=== PATIENT | female | born 1940 | race Caucasian/White ===

== ENCOUNTER 2016-05-22 01:35 | Day surgery (SDC) | payer MEDICARE ==
[~2016-05-22 01:35] MED LIST: ALEN40TA2 PO; ASPI-973 PO; ATRV10T PO; CALC-190 PO; CHOL200047 PO; ESTR0.45 PO; MULT-666 PO
[2016-05-22] MEDS ORDERED: Thyrotropin 0.9 mg/mL Inj IM ONE (10:00)
[2016-05-22] MEDS ORDERED: METR45CR TOP (10:03)
[2016-05-22] MEDS ORDERED: GLUC100016 PO (10:03)
[2016-05-22] MEDS ORDERED: CALC0.257 PO (10:03)
[2016-05-22] MEDS ORDERED: LEVO125T6 PO (10:03)
--- NOTE | 2016-05-22 11:30 | NUR ---
Injection/Discharge Pt. arrived about 1000. VSS. Denies pain. Med. Rec. done. Thyrogen Care note reviewed. Injection reviewed about 1050. Injection give in left buttock. Schedule for the rest of the test reviewed. Discharge instructions given, see sheets. Verbalizes understanding. Discharged ambulatory with all belongings in no distress at 1100.
== END 2016-05-22 23:59 | disposition home or self-care (01) ==
LOC: SOUO 01:35
PROVIDERS: ATTEND Specialist
DX: C73 Malignant neoplasm of thyroid gland (principal)
CPT/HCPCS: 96372; J3240

== ENCOUNTER 2016-05-23 03:17 | Day surgery (SDC) | payer MEDICARE ==
[~2016-05-23 03:17] MED LIST changes: +CALC0.257 PO; +GLUC100016 PO; +LEVO125T6 PO; +METR45CR TOP
[2016-05-23] MEDS ORDERED: Thyrotropin 0.9 mg/mL Inj IM ONE (10:00)
[2016-05-23 10:05] VITALS: BP 135/71; PULSE 73; RESP 16; O2SAT 96
--- NOTE | 2016-05-23 10:12 | NUR ---
#2 Thyroid injection completed. Pt has no complaints and understand plan of care following today's injection.
== END 2016-05-23 23:59 ==
LOC: SOUO 03:17
PROVIDERS: ATTEND Specialist
DX: C73 Malignant neoplasm of thyroid gland (principal)
CPT/HCPCS: 96372; J3240